=== PATIENT | male | born 1970 | race Caucasian/White ===

== ENCOUNTER 2021-08-16 10:26 | Inpatient (IN) | payer OTHER, SELFPAY ==
[2021-08-16] MEDS ORDERED: Thiamine 100 MG TAB ONE (11:34)
[2021-08-16 11:50] LABS: #Monocytes 0.4 10x3/uL (0.0-1.1); #Neutrophils 6.4 10x3/uL (1.5-8.4); %Basophils 0.3 % (0.0-2.0); %Eosinophils 0.1 % (0.0-6.0); %Lymphocytes 8.5 % (18.0-47.0); %Monocytes 5.7 % (0.0-10.0); Hemoglobin 15.8 g/dL (13.5-17.5); Mean Corpuscular HGB CONC 34.2 g/dL (32.0-36.0); Mean Corpuscular Hemoglobin 34.6 pg (27.0-33.0); Mean Corpuscular Volume 101.1 fl (81.2-95.1); Mean Platelet Volume 8.7 fl (7.4-10.4); Platelet Count 150 10x3/uL (150-450); RBC Distribution Width 12.9 % (11.5-14.5); Red Blood Cell (RBC) Count 4.57 10x6/uL (4.32-5.72); White Blood Cell (WBC) Count 7.5 10x3/uL (3.5-10.5)
[2021-08-16 12:03] LABS: ALT (SGPT) 33 U/L (8-55); AST (SGOT) 104 U/L (5-34); Acetaminophen Less than 6.0 mcg/mL (10.0-30.0); Albumin 3.6 g/dL (3.5-5.0); Alcohol 149 mg/dL (Less than 10); Alkaline Phosphatase 101 U/L (40-110); Anion Gap 20 mmol/L (10-20); BUN (Urea Nitrogen) 10 mg/dL (8.4-25.7); Bilirubin, Total 1.1 mg/dL (0.2-1.2); Calc. Creatinine Clearance 0 mL/min (70-130); Calcium 8.5 mg/dL (7.8-10.44); Carbon Dioxide 24 mmol/L (22-29); Chloride 102 mmol/L (98-107); Globulin 3.9 g/dL (2.4-3.5); Glucose 128 mg/dL (70-105); Potassium 3.8 mmol/L (3.5-5.1); Protein, Total 7.5 g/dL (6.0-8.3); Salicylate Less than 8.0 mg/dL (15.0-30.0); Sodium 142 mmol/L (136-145)
[2021-08-16 13:39] LABS: Bilirubin Neg (Negative); Blood, Urine 10 (Negative); Clarity Clear (Clear); Glucose, Urine (Dipstick) Normal (Negative); Ketone, Urine Negative (Negative); Leukocyte Negative (Negative); Nitrite Negative (Negative); Protein, Urine (Dipstick) 100 mg/dl (Neg-Trace); Specific Gravity, Urine 1.015 (1.002-1.036); Urobilinogen Normal mg/dL (Less than 2)
[2021-08-16 13:50] LABS: RBC/HPF 0-3 HPF (0-3); Squamous Epithelial 0-3 HPF (0-3); WBC/HPF 0-3 HPF (0-3)
[2021-08-16 13:51] LABS: Bacteria/HPF Rare-Few HPF (None Seen); Mucous/LPF Rare LPF (<2+)
[2021-08-16] MEDS ORDERED: Lorazepam 2 MG/ML VIAL ONE (15:05)
[2021-08-16] MEDS ORDERED: Ondansetron PF 4 MG/2 ML Vial IVP PRN (15:12)
[2021-08-16] MEDS ORDERED: Ondansetron ODT 4 MG TAB PO PRN ×2 (15:12→15:14)
[2021-08-16] MEDS ORDERED: hydrALAZINE 20 MG/ML VIAL SLOW IVP PRN ×2 (15:14→15:17)
[2021-08-16] MEDS ORDERED: Lorazepam 1 MG TAB PO PRN (15:14)
[2021-08-16] MEDS ORDERED: Electrolyte Replacement Protocol FS SCH (15:15)
[2021-08-16 15:39] LABS: Magnesium 1.6 mg/dL (1.6-2.6); Phosphorus 5.3 mg/dL (2.3-4.7)
[2021-08-16] MEDS ORDERED: Thiamine HCl 200 MG/2 ML VIAL SLOW IVP SCH (16:00)
[2021-08-16 16:02] LABS: Amphetamine Not Detected (NotDetected); Barbiturates Screen Not Detected (NotDetected); Benzodiazepine Screen Not Detected (NotDetected); Cocaine Metabolite Screen Not Detected (NotDetected); Methadone Not Detected (NotDetected); Methamphetamine Not Detected (NotDetected); Opiate Screen Not Detected (NotDetected); Oxycodone Screen Not Detected (NotDetected); Phencyclidine (PCP) Not Detected (NotDetected); THC/Cannabinoid Screen Not Detected (NotDetected); Tricyclic Screen Not Detected (NotDetected)
[2021-08-16 16:10] LABS: Syphilis Antibody Nonreactive (Nonreactive); Syphilis Antibody Index 0.11 S/CO (<1.00 Non-Reactive)
[2021-08-16 16:35] LABS: SARS-CoV-2 NAA Rapid Test Not Detected (NotDetected)
[2021-08-16] MEDS ORDERED: Magnesium 2 GM/50 ML 2 GM in Premix Bag 1 BAG IVPB SCH (17:15)
[2021-08-16 17:43] VITALS: BMI 34.2
[2021-08-16] MEDS: Lorazepam 1 MG TAB PO SCH ×2 (17:57→21:14)
[2021-08-16] MEDS: Sodium Chloride 0.9% 1,000 ML IV SCH (17:57)
[2021-08-16] MEDS ORDERED: Multivitamins, Adult 10 ML, Folic Acid 1 MG, Thiamine HCl 100 MG in Dextrose 5 %-0.45 %... IV SCH (18:00)
[2021-08-16] MEDS: Multivitamins, Adult 10 ML, Folic Acid 1 MG in Dextrose 5 %-0.45 % NaCl 1,000 ML IV SCH (19:43)
[2021-08-16] MEDS ORDERED: Acetaminophen 325 MG TAB PO SCH (23:45)
[2021-08-17] MEDS: Lorazepam 1 MG TAB PO SCH ×4 (04:00→21:03)
[2021-08-17] MEDS: Sodium Chloride 0.9% 1,000 ML IV SCH ×2 (04:01→08:14)
[2021-08-17 05:15] LABS: Anion Gap 15 mmol/L (10-20); BUN (Urea Nitrogen) 13 mg/dL (8.4-25.7); Calc. Creatinine Clearance 60 mL/min (70-130); Calcium 8.2 mg/dL (7.8-10.44); Carbon Dioxide 25 mmol/L (22-29); Chloride 103 mmol/L (98-107); Glucose 99 mg/dL (70-105); Magnesium 1.9 mg/dL (1.6-2.6); Phosphorus 4.2 mg/dL (2.3-4.7); Potassium 3.6 mmol/L (3.5-5.1); Sodium 139 mmol/L (136-145)
[2021-08-17 05:18] LABS: #Monocytes 0.4 10x3/uL (0.0-1.1); #Neutrophils 3.3 10x3/uL (1.5-8.4); %Basophils 0.2 % (0.0-2.0); %Lymphocytes 20.3 % (18.0-47.0); %Monocytes 8.3 % (0.0-10.0); Hemoglobin 13.9 g/dL (13.5-17.5); Mean Corpuscular HGB CONC 34.2 g/dL (32.0-36.0); Mean Corpuscular Volume 99.3 fl (81.2-95.1); Mean Platelet Volume 9.5 fl (7.4-10.4); Platelet Count 116 10x3/uL (150-450); RBC Distribution Width 12.7 % (11.5-14.5); Red Blood Cell (RBC) Count 4.09 10x6/uL (4.32-5.72); White Blood Cell (WBC) Count 4.7 10x3/uL (3.5-10.5)
[2021-08-17] MEDS ORDERED: Magnesium 2 GM/50 ML 2 GM in Premix Bag 1 BAG IVPB SCH (05:30)
[2021-08-17] MEDS: Folic Acid 1 MG TAB PO SCH (08:14)
[2021-08-17] MEDS: Pantoprazole 40 MG VIAL IVP SCH (08:14)
[2021-08-17] MEDS: Multivit, Therapeutic 1 TAB PO SCH (08:15)
[2021-08-17] MEDS: Amlodipine 10 MG TAB PO SCH (08:15)
[2021-08-17] MEDS ORDERED: Losartan Potassium 50 MG TAB PO SCH (09:00)
[2021-08-17 09:19] LABS: Magnesium 2.5 mg/dL (1.6-2.6)
[2021-08-17 09:35] LABS: HIV (1/2) Antibody/Antigen Non-Reactive (NonReactive)
[2021-08-17 12:54] LABS: Hep C IgG Ab Non-Reactive (NonReactive); Hep C Index 0.07 S/CO (0-0.79)
[2021-08-17 13:51] LABS: Creatinine, Urine 20.54 mg/dL (63-166); Protein, Urine Random Quant Less than 10 mg/dL (1-14)
[2021-08-17] MEDS: Lactated Ringer's 1,000 ML IV SCH ×2 (14:26→22:33)
[2021-08-17] MEDS: Thiamine HCl 200 MG/2 ML VIAL SLOW IVP SCH (14:27)
[2021-08-17] MEDS ORDERED: Lorazepam 1 MG TAB PO PRN (15:15)
[2021-08-17] MEDS: Multivitamins, Adult 10 ML, Folic Acid 1 MG in Dextrose 5 %-0.45 % NaCl 1,000 ML IV SCH (18:28)
[2021-08-17] MEDS: Tamsulosin HCl 0.4 MG CAP PO SCH (21:03)
[2021-08-18] MEDS: Lorazepam 1 MG TAB PO SCH ×3 (03:39→16:28)
[2021-08-18 04:45] LABS: #Monocytes 0.3 10x3/uL (0.0-1.1); #Neutrophils 3.2 10x3/uL (1.5-8.4); %Basophils 0.2 % (0.0-2.0); %Eosinophils 0.9 % (0.0-6.0); %Lymphocytes 23.5 % (18.0-47.0); %Monocytes 7.1 % (0.0-10.0); %Neutrophils 67.9 % (40.0-75.0); Hemoglobin 13.4 g/dL (13.5-17.5); Mean Corpuscular HGB CONC 33.3 g/dL (32.0-36.0); Mean Corpuscular Hemoglobin 33.9 pg (27.0-33.0); Mean Corpuscular Volume 101.8 fl (81.2-95.1); Mean Platelet Volume 9.7 fl (7.4-10.4); Platelet Count 116 10x3/uL (150-450); RBC Distribution Width 12.7 % (11.5-14.5); Red Blood Cell (RBC) Count 3.95 10x6/uL (4.32-5.72); White Blood Cell (WBC) Count 4.7 10x3/uL (3.5-10.5)
[2021-08-18 05:15] LABS: ALT (SGPT) 22 U/L (8-55); AST (SGOT) 60 U/L (5-34); Albumin 3.3 g/dL (3.5-5.0); Alkaline Phosphatase 98 U/L (40-110); Anion Gap 15 mmol/L (10-20); BUN (Urea Nitrogen) 13 mg/dL (8.4-25.7); Bilirubin, Total 2.2 mg/dL (0.2-1.2); Calc. Creatinine Clearance 90 mL/min (70-130); Calcium 8.7 mg/dL (7.8-10.44); Carbon Dioxide 25 mmol/L (22-29); Chloride 101 mmol/L (98-107); Globulin 3.5 g/dL (2.4-3.5); Glucose 108 mg/dL (70-105); Potassium 3.3 mmol/L (3.5-5.1); Protein, Total 6.8 g/dL (6.0-8.3); Sodium 138 mmol/L (136-145)
[2021-08-18] MEDS ORDERED: Potassium Chloride 20 MEQ TAB PO SCH (05:30)
[2021-08-18] MEDS: Lactated Ringer's 1,000 ML IV SCH ×2 (05:46→08:55)
[2021-08-18] MEDS: Pantoprazole 40 MG VIAL IVP SCH (08:55)
[2021-08-18] MEDS: Amlodipine 10 MG TAB PO SCH (08:56)
[2021-08-18] MEDS: Folic Acid 1 MG TAB PO SCH (08:56)
[2021-08-18] MEDS: Multivit, Therapeutic 1 TAB PO SCH (08:56)
[2021-08-18] MEDS ORDERED: Lorazepam 1 MG TAB PO PRN (15:15)
[2021-08-18] MEDS: Multivitamins, Adult 10 ML, Folic Acid 1 MG in Dextrose 5 %-0.45 % NaCl 1,000 ML IV SCH (16:28)
[2021-08-18] MEDS: Thiamine HCl 200 MG/2 ML VIAL SLOW IVP SCH (16:28)
[2021-08-18] MEDS: Lorazepam 0.5 MG TAB PO SCH ×3 (16:33→20:59)
[2021-08-18] MEDS ORDERED: Nicotine 21 MG PATCH TOP PRN (20:38)
[2021-08-18] MEDS: Tamsulosin HCl 0.4 MG CAP PO SCH (20:59)
[2021-08-19] MEDS ORDERED: Acetaminophen 325 MG TAB PO PRN (01:52)
[2021-08-19] MEDS: Lorazepam 0.5 MG TAB PO SCH ×2 (03:25→09:02)
[2021-08-19 06:40] LABS: ALT (SGPT) 24 U/L (8-55); AST (SGOT) 66 U/L (5-34); Albumin 3.4 g/dL (3.5-5.0); Alkaline Phosphatase 95 U/L (40-110); Anion Gap 16 mmol/L (10-20); BUN (Urea Nitrogen) 14 mg/dL (8.4-25.7); Bilirubin, Total 2.1 mg/dL (0.2-1.2); Calc. Creatinine Clearance 107 mL/min (70-130); Calcium 8.8 mg/dL (7.8-10.44); Carbon Dioxide 23 mmol/L (22-29); Chloride 103 mmol/L (98-107); Globulin 3.3 g/dL (2.4-3.5); Glucose 91 mg/dL (70-105); Potassium 3.7 mmol/L (3.5-5.1); Protein, Total 6.7 g/dL (6.0-8.3); Sodium 138 mmol/L (136-145)
[2021-08-19] MEDS ORDERED: Thiamine 100 MG TAB PO SCH (09:00)
[2021-08-19] MEDS: Amlodipine 10 MG TAB PO SCH (09:01)
[2021-08-19] MEDS: Multivit, Therapeutic 1 TAB PO SCH (09:02)
[2021-08-19] MEDS: Folic Acid 1 MG TAB PO SCH (09:02)
[2021-08-19] MEDS: Pantoprazole 40 MG VIAL IVP SCH (09:02)
[2021-08-19 10:15] LABS: Hep B Surface AG-Rflx Sendout Negative (Negative); Hepatitis B Core Total Negative (Negative); Hepatitis B Surface AB-Sendout Non Reactive (.)
[2021-08-19 12:14] VITALS: BP 139/94; TEMP 98.5
[2021-08-19] MEDS ORDERED: Lorazepam 0.5 MG TAB PO PRN (15:15)
[2021-08-20] MEDS ORDERED: Thiamine 100 MG TAB PO SCH (09:00)
== END 2021-08-19 11:30 | disposition home or self-care (01) | DRG 682 ==
LOC: CSHERS 10:26 → CSHTELE 16:24
PROVIDERS: ADMIT Family Medicine; ATTEND Family Medicine
DX: N17.9 Acute kidney failure, unspecified (principal); G93.41 Metabolic encephalopathy; N20.1 Calculus of ureter; E87.2 Acidosis; Z20.822 Contact with and (suspected) exposure to COVID-19; G31.2 Degeneration of nervous system due to alcohol; E78.5 Hyperlipidemia, unspecified; F10.129 Alcohol abuse with intoxication, unspecified; R74.01 Elevation of levels of liver transaminase levels; F17.290 Nicotine dependence, other tobacco product, uncomplicated; N18.4 Chronic kidney disease, stage 4 (severe); I12.9 Hypertensive chronic kidney disease with stage 1 through stage 4 chronic kidney disease, or unspecified chronic kidney disease; D63.1 Anemia in chronic kidney disease; E83.39 Other disorders of phosphorus metabolism; E87.6 Hypokalemia; E88.09 Other disorders of plasma-protein metabolism, not elsewhere classified; Z79.82 Long term (current) use of aspirin; Z79.899 Other long term (current) drug therapy; Z82.49 Family history of ischemic heart disease and other diseases of the circulatory system
CPT/HCPCS: 0240U; 36415; 70450; 71045; 76770; 80048; 80053; 80306; 80307; 81003; 81015; 82570; 82607; 82746; 83735; 84100; 84156; 84425; 84484; 85025; 86704; 86705; 86706; 86707; 86780; 86803; 87040; 87340; 87350; 87389; 93005; 94760; C9113; J0360; J2060; J3411; J3475; J7042; J7050; J7120